=== PATIENT | female | born 1990 | race Caucasian/White ===

== ENCOUNTER → 2016-10-25 | Outpatient (CLI) | payer BC, OTHER ==
--- NOTE | 2016-10-25 18:16 | US ---
Complete Abdominal Sonogram at 1700 hours Indication: Abdominal pain. Comparison: None. Findings: The normal size liver, measuring 16.3 cm in the mid axillary line, has borderline increase d echogenicity and normal echotexture. No sonographic mass or biliary dilation. The gallbladder is normal. No intraluminal stones, sludge, wall thickening, or sonographic Flynn si gn. Common bile duct is normal caliber (3 mm). Portal vein is patent. The inferior vena cava is normal caliber. The abdominal aorta is normal calibe r. The kidneys are unremarkable, with no hydronephrosis. The right kidney measures 11.2 cm in length x 5.4 x 5.6 cm axially. The left kidney measures 10.5 cm in length x 4.9 x 4.5 cm axially. No free fluid. The imaged portions of the pancreatic neck, head, and central body are normal. The s pleen is normal size, measuring 12 cm craniocaudal. The pancreatic tail is obscured by bowel gas. Additionally, survey for the appendix was performed. The appendix could not be localized. Correspon ding to the site of pain is a normal size right ovary, with normal blood flow. No ovarian cyst. The right ovary measures 3.8 x 2.1 cm. Impression: 1. Appendix not visualized. 2. Site of pain corresponds to a normal-appearing right ovary. No ovarian cyst, torsion, or free fl uid. 3. Equivocal hepatic steatosis. 4. Normal gallbladder. No cholelithiasis or biliary dilation. Comment: Results were discussed with Naheed Muñiz N.P., at 6 p.m. on October 25, 2016.
== END ==
LOC: FIMAGING 16:03
PROVIDERS: ATTEND Registered Nurse
DX: R10.9 Unspecified abdominal pain (principal)